=== PATIENT | male | born 1945 | race Caucasian/White ===

== ENCOUNTER 2017-06-21 08:38 | Outpatient (CLI) | payer MEDICARE ==
[2017-06-21 10:15] LABS: Bilirubin Small (Negative); Blood, Urine Negative (Negative); Clarity CLEAR (Clear); Glucose, Urine (Dipstick) Negative (Negative); Leukocyte Negative (Negative); Nitrite Negative (Negative); Protein, Urine (Dipstick) Negative (Neg-Trace); Specific Gravity, Urine 1.031 (1.002-1.036); Urobilinogen 0.2 mg/dL (0.2-1.0); pH, Urine 5.5 (5.0-9.0)
[2017-06-21 10:16] LABS: Bacteria/HPF None Seen HPF (None Seen); Hyaline Casts/LPF 0-3 HYALINE CAST LPF (0-3 Hyaline); Pathc Cast-AUWi Flag 0.27 (0-2.49); Squamous Epithelial None Seen HPF (0-3); WBC/HPF 0-3 HPF (0-3)
[2017-06-21 10:27] LABS: Anion Gap 11 mmol/L (10-20); BUN (Urea Nitrogen) 19 mg/dL (8.4-25.7); Calc. Creatinine Clearance 0 mL/min (70-130); Calcium 9.7 mg/dL (7.8-10.44); Carbon Dioxide 30 mmol/L (23-31); Chloride 102 mmol/L (98-107); Estimated GFR-MDRD Greater than 90; Glucose 110 mg/dL (83-110); Potassium 4.2 mmol/L (3.5-5.1); Sodium 139 mmol/L (136-145)
[2017-06-21 10:31] LABS: Hemoglobin 12.2 g/dL (14.0-18.0); Mean Corpuscular HGB CONC 33.3 g/dL (32.0-36.0); Mean Corpuscular Hemoglobin 22.9 pg (27.0-31.0); Mean Corpuscular Volume 68.7 fl (80.0-94.0); Mean Platelet Volume 10.4 fL (7.4-10.4); Platelet Count 167 thou/uL (130-400); RBC Distribution Width 14.8 % (11.5-14.5); Red Blood Cell (RBC) Count 5.32 mill/uL (4.70-6.10); White Blood Cell (WBC) Count 6.9 thou/uL (4.8-10.8)
--- NOTE | 2017-06-21 10:44 | RAD ---
CHEST TWO VIEWS: History: Pre-operative. Comparison: 03-16-17 FINDINGS: Lungs are clear of airspace consolidation, pneumothorax, or effusion. Cardiac silhouette and mediasti nal contours are similar. Multiple median sternotomy wires. IMPRESSION: No acute intrathoracic abnormality. No significant change. POS: OFF
[2017-06-21 11:00] LABS: Prothrombin Time 13.4 SEC (12.0-14.7)
[2017-06-21 11:01] LABS: PTT 32.5 SEC (22.9-36.1)
--- NOTE | 2017-06-30 19:27 | EKG ---
Test Reason : Blood Pressure : / mmHG Vent. Rate : 059 BPM Atrial Rate : 059 BPM P-R Int : 214 ms QRS Dur : 094 ms QT Int : 436 ms P-R-T Axes : 061 022 068 degrees QTc Int : 431 ms Sinus bradycardia with 1st degree A-V block Nonspecific T wave abnormality Abnormal ECG When compared with ECG of 08-JUL-2015 22:57, DE interval has increased Confirmed by KAMRON WILDE (2) on 06/30/2017 7:27:18 PM Referred By: TANJA Confirmed By:KAMRON WILDE
== END 2017-06-21 08:39 | disposition home or self-care (01) ==
LOC: LABBT 08:38
PROVIDERS: ATTEND Orthopaedic Surgery
DX: Z01.818 Encounter for other preprocedural examination (principal); M16.11 Unilateral primary osteoarthritis, right hip
CPT/HCPCS: 71046; 80048; 81001; 85027; 85610; 85730; 86850; 86900; 86901; 87081; 93005; 93010

== ENCOUNTER 2017-06-21 09:00 | Inpatient (IN) | payer MEDICARE ==
--- NOTE | 2017-06-23 18:38 | HP ---
HISTORY OF PRESENT ILLNESS: The patient is a 71-year-old male with a several month history of progre ssive bilateral hip pain, right greater than left. He has had no injury. He has had progressive eva n with ambulation despite rest, restriction of activities, use of pain medication. Pain is now inter fering with day to day activities including walking, getting dressed, and sleeping. PAST HISTORY: Please see the old chart. The patient has a previous heart bypass surgery and bilater al total knee replacements. He also has a history of hypertension and is on aspirin and Plavix. He has stopped Plavix in anticipation of surgery one week preoperatively, but has continued aspirin. He has been seen and cleared for surgery by Dr. Keyes. CURRENT MEDICATIONS: Include lisinopril, Prilosec, multivitamins, hydrocodone, aspirin 81 mg, Lexapr o, lorazepam, amlodipine, Lipitor, nitroglycerin, hydrochlorothiazide. ALLERGIES: He has no known allergies. FAMILY HISTORY: Otherwise unremarkable. SOCIAL HISTORY: Otherwise unremarkable. REVIEW OF SYSTEMS: Otherwise unremarkable. PHYSICAL EXAMINATION: GENERAL: Reveals healthy elderly male. HEENT: Unremarkable. NECK: Supple. CHEST: Clear. HEART: Regular rate and rhythm. ABDOMEN: Soft, nontender. RECTAL/GENITAL: Deferred. EXTREMITIES: Pertinent findings are related to his hips. Leg lengths are equal. There is no point tenderness in severe hip. There is decreased range of motion and pain with internal rotation o f both hips, right greater than left. His gait is slow and deliberate. Neurovascular exam is intact . Pulses are 2+. Straight leg raising is negative. X-rays of both hips reveal degenerative arthritis of both hips, right greater than left with minimal joint space remaining on the right, mild joint space remaining on the left. There has been progressi on from x-rays taken one year ago. IMPRESSION: 1. Primary degenerative arthritis, both hips, right greater than left. 2. History of hypertension. 3. History of atherosclerotic cardiovascular disease. PLAN: Right total hip replacement. The nature of the surgery, length of recovery, and potential com plications such as infection, loss of motion, incomplete relief, neurovascular injury, thromboembolic phenomenon, leg length discrepancy, possible transfusion, and need for revision have been discussed in detail.
[2017-06-27] MEDS ORDERED: CEFAZOLIN/Water 2 GM/20 ML SYRINGE ONE (06:31)
[2017-06-27] MEDS ORDERED: Tranexamic Acid 1,000 MG/100 ML BAG ONE ×2 (06:31→12:04)
[2017-06-27] MEDS ORDERED: Vancomycin HCl 1.5 GM in Sodium Chloride 0.9% 250 ML 300 ML IVPB ONE (07:00)
[2017-06-27] MEDS ORDERED: Midazolam HCl 2 mg/2 ml Vial ONE ×3 (07:35→08:48)
[2017-06-27] MEDS ORDERED: Fentanyl 100 MCG/2 ML VIAL ONE ×4 (07:35→13:50)
[2017-06-27] MEDS ORDERED: Fentanyl 250 MCG/5 ML VIAL ONE (09:43)
[2017-06-27] MEDS ORDERED: Tranexamic Acid 1,000 MG in Sodium Chloride 0.9% 100 ML IVPB SCH ×2 (11:45→14:43)
[2017-06-27] MEDS ORDERED: Ondansetron HCl/PF 4 MG/2 ML Vial IVP PRN ×3 (11:50→14:43)
[2017-06-27] MEDS ORDERED: Promethazine HCl 25 MG/ML VIAL IM PRN ×3 (11:50→13:09)
[2017-06-27] MEDS ORDERED: Promethazine HCl 25 MG/ML VIAL SLOW IVP PRN ×2 (11:50→14:43)
[2017-06-27] MEDS ORDERED: Promethazine HCl 25 MG/ML VIAL ONE (12:04)
--- NOTE | 2017-06-27 12:08 | OP ---
DATE OF PROCEDURE: 06/27/2017 SURGEON: Michael Marshall M.D. DIRECTOR STUDENT UNION: Luis Mcqueen PA-C. ANESTHESIA: General. PREOPERATIVE DIAGNOSIS: Degenerative arthritis, right hip. POSTOPERATIVE DIAGNOSIS: Degenerative arthritis, right hip. PROCEDURES PERFORMED: Right total hip replacement with uncemented Trident PSL acetabular shell with X3 polyethylene insert and uncemented Accolade femoral stem #3 with 36 mm standard neck length metal head. NARRATIVE REPORT: After satisfactory anesthesia was induced in supine position, sequential compressi on device was placed on the non-operative leg throughout the procedure. The patient was placed in th e lateral decubitus position. This position held with hip positioning device. The patient was then prepped and draped in the routine manner. The hip was approached through a lateral curvilinear incis ion centered over the greater trochanter and carried down through subcutaneous tissues. Bleeding poi nts controlled with Bovie cautery. IT band and gluteal fascia were split in line with the skin incis ion. The direct lateral approach to the hip joint was accomplished by dividing the anterior third of the gluteus medius and minimus tendons with Bovie cautery and reflecting this as a single flap anter iorly and medially along with the vastus lateralis. Anterior capsulectomy was performed and the hip dislocated anteriorly. There was marked degenerative arthritis of the hip with large areas of expose d bone. The femoral neck was osteotomized with an oscillating saw using a trial prosthesis as a guid e. The acetabulum was exposed and cleaned of all soft tissue and rim osteophytes. It was then reame d in sequence down to bleeding subchondral bone to a total of 56 mm. It was felt that a 56 mm Triden t PSL outer shell could be placed in a press fit fashion. The permanent component was then hammered into position. There was good fit and stability of the outer shell and the permanent X3 polyethylene liner was then snapped into position. The proximal femur was exposed and opened with a box osteotom e and then rasped in sequence to accept a #3 Accolade femoral rasp. Trial reduction with 132 degree neck angle trunnion and the standard neck length 36 mm head gave appropriate size, fit, stability, an d maintenance of leg length. Hip was again dislocated, the trial components removed. The permanent #3 Accolade femoral stem was then hammered in position. There was again good fit and stability. The permanent 36 mm standard neck length metal head was then placed on the trunnion and the hip again re duced and found to be stable. The wound was copiously irrigated with pulsatile lavage. The abductor s were repaired with interrupted #2 Vicryl. The IT band and gluteal fascia were closed with interrup stanley #2 Vicryl and a running #2 Quill. Subcutaneous tissues were closed with running 0 Quill suture a nd the skin closed with running subcuticular 3-0 Monoderm and SurgiSeal skin adhesive. Sterile dress ing was applied and the patient turned to the supine position, a pillow placed between his legs. Seq uential compression device was placed on the operated leg and he was awakened and taken to recovery r oom in stable condition. There were no apparent intraoperative complications. The estimated blood l oss was 400 mL
--- NOTE | 2017-06-27 12:33 | RAD ---
RIGHT HIP TWO VIEWS: History: Post op total hip. Comparison: CT from 03-16-17. FINDINGS: Satisfactory appearance related to hip arthroplasty. No complication. IMPRESSION: Satisfactory appearance right hip arthroplasty. POS: DENIS
[2017-06-27] MEDS ORDERED: Fentanyl 5000 MCG/250 ML CADD IVPB PRN (12:55)
[2017-06-27] MEDS ORDERED: diphenhydrAMINE 25 MG CAP PO PRN ×3 (12:55→14:43)
[2017-06-27] MEDS ORDERED: Naloxone HCl 0.4 mg/ml Vial IV PRN ×2 (12:55→13:09)
[2017-06-27] MEDS ORDERED: diphenhydrAMINE 50 MG/ML VIAL IM PRN ×2 (12:55→13:09)
[2017-06-27] MEDS ORDERED: Zolpidem Tartrate 5 MG TAB PO PRN ×2 (12:55→14:43)
[2017-06-27] MEDS ORDERED: diphenhydrAMINE 50 MG/ML VIAL IVP PRN ×2 (12:55→13:09)
[2017-06-27] MEDS ORDERED: Communication Order-Pharmacy FS SCH ×2 (13:00→13:15)
[2017-06-27] MEDS ORDERED: HYDROmorphone 10 mg/100 ml CADD IVPB PRN (13:09)
[2017-06-27] MEDS ORDERED: fentaNYL Citrate/PF 2,000 MCG in Sodium Chloride 0.9% 60 ML IV PRN (13:15)
[2017-06-27] MEDS ORDERED: traMADol HCl 50 MG TAB PO PRN (14:43)
[2017-06-27] MEDS ORDERED: Nitroglycerin 4.9 GM Bottle SL PRN (14:43)
[2017-06-27] MEDS ORDERED: Fentanyl 100 MCG/2 ML VIAL SLOW IVP PRN ×2 (14:43)
[2017-06-27] MEDS ORDERED: HYDROcodone/Acetaminophen 10/325 mg Tablet PO PRN ×2 (14:43)
[2017-06-27] MEDS ORDERED: Lorazepam 1 MG TAB PO PRN (15:44)
--- NOTE | 2017-06-27 16:59 | PDOC.PN ---
- Subjective Encounter Start Date: 06/27/17 Encounter Start Time: 16:57 Subjective: seen and examines. s/p R hip arthroplasty for OA and pain -: c/o difficulty urination. -: PCP -Crista.Sales Research Analyst-angelo - Objective MAR Reviewed: Yes Vital Signs & Weight: Vital Signs (12 hours) Temp Pulse Resp BP Pulse Ox 06/27/17 15:16 97.7 F 84 18 96 06/27/17 14:30 97.7 F 84 18 104/62 96 Weight Weight 241 lb Phys Exam - Physical Examination Constitutional: NAD HEENT: PERRLA, moist MMs, sclera anicteric, oral pharynx no lesions Neck: no nodes, no JVD, supple, full ROM Respiratory: no wheezing, no rales, no rhonchi, clear to auscultation bilateral Cardiovascular: RRR, no significant murmur Gastrointestinal: soft, non-tender, no distention, positive bowel sounds Musculoskeletal: no edema, pulses present Neurological: non-focal, normal sensation, moves all 4 limbs Psychiatric: normal affect, A&O x 3 Skin: no rash Dx/Plan (1) HTN (hypertension) Code(s): I10 - ESSENTIAL (PRIMARY) HYPERTENSION Status: Acute (2) CAD (coronary artery disease) Code(s): I25.10 - ATHSCL HEART DISEASE OF [place] CORONARY ARTERY W/O ANG PCTRS Status: Acute (3) S/P total hip arthroplasty Code(s): Z96.649 - PRESENCE OF UNSPECIFIED ARTIFICIAL HIP JOINT Status: Acute Qualifiers: Laterality: right Qualified Code(s): Z96.641 - Presence of right artificial hip joint (4) BPH (benign prostatic hypertrophy) Code(s): N40.0 - BENIGN PROSTATIC HYPERPLASIA WITHOUT LOWER URINRY TRACT SYMP Status: Acute - Plan continue antibiotics, PT/OT, respiratory therapy, out of bed/ambulate, DVT proph w/SCDs Bladder scan.if >300 ml,will try lasix .if no UO,then will Do garduno. -: pt somnolent from pain meds and anesthesia.monitor. -: am labs. H/H,BMP. -: home meds as below.reviewed. -: ASA BID for DVt prophylaxis.will follow. * . Review of Systems - Review of Systems Constitutional: negative: fever, chills, sweats, weakness, malaise, other Respiratory: negative: Cough, Dry, Shortness of Breath, Hemoptysis, SOB with Excertion, Pleuritic Pain, Sputum, Wheezing Cardiovascular: negative: chest pain, palpitations, orthopnea, paroxysmal nocturnal dyspnea, edema, light headedness, other Gastrointestinal: negative: Nausea, Vomiting, Abdominal Pain, Diarrhea, Constipation, Melena, Hematochezia, Other Genitourinary: Other. negative: Dysuria, Frequency, Incontinence, Hematuria, Retention Musculoskeletal: negative: Neck Pain, Shoulder Pain, Arm Pain, Back Pain, Hand Pain, Leg Pain, Foot Pain, Other Neurological: negative: Weakness, Numbness, Incoordination, Change in Speech, Confusion, Seizures, Other - Medications/Allergies Allergies/Adverse Reactions: Allergies Allergy/AdvReac Type Severity Reaction Status Date / Time tolmetin sodium Allergy Severe Anaphylaxis Verified 06/21/17 09:13 [From Tolectin] Iodinated Contrast- Oral and Allergy Mild Verified 06/21/17 09:13 IV Dye [Iodinated Contrast Media - IV Dye] adhesive Allergy Verified 06/21/17 09:13 Medications: Current Medications Acetaminophen (Tylenol) 650 mg PO Q4H PRN PRN Reason: SILVA/ T > 101F; Mild Pain (1-3) Hydrocodone Bitart/Acetaminophen ([place] 10/325) 1 tab PO Q4H PRN PRN Reason: Moderate Pain (4-6) Hydrocodone Bitart/Acetaminophen ([place] 10/325) 2 tab PO Q4H PRN PRN Reason: Severe Pain (7-10) Amlodipine Besylate (Norvasc) 5 mg PO QAM [facility] Aspirin (Aspirin) 325 mg PO BID [facility] Atorvastatin Calcium (Lipitor) 40 mg PO QAM [facility] Cefazolin Sodium (Ancef) 2 gm SLOW IVP 0200,1000,1800 [facility] Stop: 06/28/17 02:01 Diphenhydramine HCl (Benadryl) 25 mg IVP Q3H PRN PRN Reason: Itching Diphenhydramine HCl (Benadryl) 25 mg PO Q3H PRN PRN Reason: Itching Diphenhydramine HCl (Benadryl) 25 mg IM Q3H PRN PRN Reason: Itching Diphenhydramine HCl (Benadryl) 25 mg PO Q6H PRN PRN Reason: Itching Escitalopram Oxalate (Lexapro) 10 mg PO QAM [facility] Fentanyl (Sublimaze) 50 mcg SLOW IVP Q30MIN PRN PRN Reason: Moderate Pain (4-6) Fentanyl (Sublimaze) 100 mcg SLOW IVP Q1H PRN PRN Reason: Severe Pain (7-10) Ferrous Gluconate (Fergon) 324 mg PO BID [facility] Fentanyl Citrate 2,000 mcg/ (Sodium Chloride) 100 mls @ 0 mls/hr IV INF PRN; As Directed PRN Reason: Pain Sodium Chloride (Normal Saline 0.9%) 1,000 mls @ 100 mls/hr IV .Q10H [facility] Vancomycin HCl 1.5 gm/ Sodium (Chloride) 300 mls @ 200 mls/hr IVPB 1999 [facility] Stop: 06/27/17 23:59 Iron/Minerals/Multivitamins (Theragran M) 1 tab PO DAILY [facility] Ketorolac Tromethamine (Toradol) 15 mg IVP Q8HR [facility] Stop: 07/02/17 22:01 Lisinopril (Zestril) 20 mg PO QAM [facility] Lorazepam (Ativan) 2 mg PO TID PRN PRN Reason: Anxiety Miscellaneous Information (Communication Order-Pharmacy) 1 each FS ONE [facility] Stop: 06/28/17 13:01 Naloxone HCl (Narcan) 0.2 mg IV Q5MIN PRN PRN Reason: Opiate Reversal Nitroglycerin (Nitrolingual 0.4 Mg Andrew) 0 gm SL Q1H PRN PRN Reason: Chest Pain Ondansetron HCl (Zofran) 4 mg IVP Q6H PRN PRN Reason: Nausea/Vomiting Ondansetron HCl (Zofran) 4 mg IVP Q6H PRN PRN Reason: Nausea/Vomiting Pantoprazole Sodium (Protonix) 40 mg PO QAM [facility] Promethazine HCl (Phenergan) 12.5 mg IM Q4H PRN PRN Reason: Nausea/Vomiting Promethazine HCl (Phenergan) 12.5 mg SLOW IVP Q4H PRN PRN Reason: Nausea/Vomiting Senna/Docusate Sodium (Senokot S) 2 tab PO BID [facility] Sodium Chloride (Flush - Normal Saline) 10 ml IVF PRN PRN PRN Reason: Saline Flush Tramadol HCl (Ultram) 100 mg PO Q6H PRN PRN Reason: Mild Pain (1-3) Zolpidem Tartrate (Ambien) 5 mg PO HSPRN PRN PRN Reason: Insomnia Zolpidem Tartrate (Ambien) 5 mg PO HSPRN PRN PRN Reason: Insomnia
[2017-06-27] MEDS ORDERED: Propofol 200 MG/20 ML VIAL ONE (17:07)
[2017-06-27] MEDS ORDERED: Ketorolac Tromethamine 30 MG/ML VIAL ONE (17:07)
[2017-06-27] MEDS ORDERED: ePHEDrine/0.9% NaCl/PF SYRINGE 50 mg/10 ml ONE (17:07)
[2017-06-27] MEDS ORDERED: Glycopyrrolate 0.2 MG/ML 5 ML SYRINGE ONE (17:07)
[2017-06-27] MEDS ORDERED: Ondansetron HCl/PF 4 MG/2 ML Vial ONE (17:07)
[2017-06-27] MEDS ORDERED: Lidocaine 1% PF 5 ML VIAL ONE (17:07)
[2017-06-27] MEDS: CEFAZOLIN/Water 2 GM/20 ML SYRINGE SLOW IVP SCH (17:51)
[2017-06-27] MEDS: Sodium Chloride 0.9% 1,000 ML IV SCH (17:51)
[2017-06-27] MEDS ORDERED: Vancomycin HCl 1.5 GM in Sodium Chloride 0.9% 250 ML 300 ML IVPB SCH (20:00)
[2017-06-27] MEDS: Ketorolac Tromethamine 30 MG/ML VIAL IVP SCH (21:39)
[2017-06-27] MEDS: Aspirin 325 MG TAB PO SCH (21:39)
[2017-06-28] MEDS: CEFAZOLIN/Water 2 GM/20 ML SYRINGE SLOW IVP SCH (02:37)
[2017-06-28] MEDS: Sodium Chloride 0.9% 1,000 ML IV SCH ×3 (02:56→20:56)
[2017-06-28 06:54] LABS: Hemoglobin 8.8 g/dL (14.0-18.0); Mean Corpuscular HGB CONC 32.3 g/dL (32.0-36.0); Mean Corpuscular Hemoglobin 22.2 pg (27.0-31.0); Platelet Count 167 thou/uL (130-400); RBC Distribution Width 14.8 % (11.5-14.5); Red Blood Cell (RBC) Count 3.94 mill/uL (4.70-6.10); White Blood Cell (WBC) Count 12.4 thou/uL (4.8-10.8)
[2017-06-28] MEDS: Ketorolac Tromethamine 30 MG/ML VIAL IVP SCH ×3 (06:55→21:21)
[2017-06-28 07:19] LABS: Anion Gap 11 mmol/L (10-20); BUN (Urea Nitrogen) 20 mg/dL (8.4-25.7); Calc. Creatinine Clearance 124 mL/min (70-130); Carbon Dioxide 28 mmol/L (23-31); Chloride 98 mmol/L (98-107); Estimated GFR-MDRD Greater than 90; Glucose 131 mg/dL (83-110); Potassium 4.5 mmol/L (3.5-5.1); Sodium 132 mmol/L (136-145)
[2017-06-28] MEDS: Multivitamin W/ Minerals 1 TAB PO SCH (07:54)
[2017-06-28] MEDS: Atorvastatin Calcium 40 MG TAB PO SCH (07:54)
[2017-06-28] MEDS: Ferrous Gluconate 324 MG TAB PO SCH ×2 (07:54→20:57)
[2017-06-28] MEDS: Aspirin 325 MG TAB PO SCH ×2 (07:55→20:57)
[2017-06-28] MEDS: Lisinopril 20 MG TAB PO SCH (07:55)
[2017-06-28] MEDS: Amlodipine 5 MG TAB PO SCH (07:55)
[2017-06-28] MEDS: Escitalopram Oxalate 10 mg Tablet PO SCH (07:55)
[2017-06-28] MEDS: Senokot S 8.6-50 MG TAB PO SCH ×2 (07:55→20:57)
[2017-06-28] MEDS ORDERED: Citalopram 20 MG TAB PO SCH (09:00)
[2017-06-28] MEDS: Ondansetron HCl/PF 4 MG/2 ML Vial IVP PRN (09:46)
[2017-06-28] MEDS ORDERED: HYDROmorphone 10 mg/100 ml CADD IV PRN (12:25)
--- NOTE | 2017-06-28 20:54 | PDOC.PN ---
- Subjective Encounter Start Date: 06/28/17 Encounter Start Time: 20:20 Subjective: f/u s/p R BRUCE POD #1. Feeling ok and ambulated with assistance. voiding in -: urinal. - Objective MAR Reviewed: Yes Vital Signs & Weight: Vital Signs (12 hours) Temp Pulse Pulse Resp BP BP Pulse Ox 06/28/17 20:00 98.2 F 105 H 17 121/73 99 06/28/17 15:35 98.6 F 90 16 109/66 96 06/28/17 11:45 97.8 F 83 16 119/67 95 06/28/17 10:06 84 151/80 H Pulse Ox 06/28/17 20:00 06/28/17 15:35 06/28/17 11:45 06/28/17 10:06 96 Weight Admit Weight 241 lb Weight 241 lb I&O: 06/27/17 06/28/17 06/29/17 06:59 06:59 06:59 Output Total 350 Balance -350 Result Diagrams: 06/28/17 06:21 06/28/17 06:21 Phys Exam - Physical Examination Constitutional: NAD HEENT: PERRLA, oral pharynx no lesions Neck: no JVD, supple Respiratory: no wheezing, clear to auscultation bilateral Cardiovascular: RRR Gastrointestinal: soft, non-tender, no distention, positive bowel sounds R hip with surgical dressing in place Musculoskeletal: pulses present, edema present Neurological: moves all 4 limbs Psychiatric: A&O x 3 Skin: normal turgor, cap refill <2 seconds Dx/Plan (1) CAD (coronary artery disease) Code(s): I25.10 - ATHSCL HEART DISEASE OF [place] CORONARY ARTERY W/O ANG PCTRS Status: Chronic Comment: Stable, continue med mgmt (2) HTN (hypertension) Code(s): I10 - ESSENTIAL (PRIMARY) HYPERTENSION Status: Chronic Qualifiers: Hypertension type: essential hypertension Qualified Code(s): I10 - Essential (primary) hypertension Comment: Stable, continue Lisinopril 20mg daily and Amlodipine 5mg daily (3) S/P total hip arthroplasty Code(s): Z96.649 - PRESENCE OF UNSPECIFIED ARTIFICIAL HIP JOINT Status: Acute Qualifiers: Laterality: right Qualified Code(s): Z96.641 - Presence of right artificial hip joint Comment: POD #1, pain control, PT/OT, ASA 325mg BID, Joint U protocol (4) BPH (benign prostatic hypertrophy) Code(s): N40.0 - BENIGN PROSTATIC HYPERPLASIA WITHOUT LOWER URINRY TRACT SYMP Status: Chronic Comment: Consider Flomax - Plan PT/OT, director of social work, incentive spirometry, out of bed/ambulate, DVT proph w/ SCDs Stable overall -: Continue Joint U protocol -: ASA 325mg BID -: Pain control as clinically indicated -: Continue Norvasc and Lisinopril * AM lab: CBC
[2017-06-29] MEDS: Ketorolac Tromethamine 30 MG/ML VIAL IVP SCH ×3 (05:09→21:56)
[2017-06-29 06:04] LABS: Hemoglobin 7.4 g/dL (14.0-18.0); Mean Corpuscular HGB CONC 32.5 g/dL (32.0-36.0); Mean Corpuscular Hemoglobin 22.3 pg (27.0-31.0); Mean Corpuscular Volume 68.4 fl (80.0-94.0); Mean Platelet Volume 9.5 fL (7.4-10.4); Platelet Count 139 thou/uL (130-400); RBC Distribution Width 14.7 % (11.5-14.5); Red Blood Cell (RBC) Count 3.33 mill/uL (4.70-6.10); White Blood Cell (WBC) Count 10.5 thou/uL (4.8-10.8)
[2017-06-29] MEDS: Sodium Chloride 0.9% 1,000 ML IV SCH ×2 (06:27→21:04)
[2017-06-29] MEDS ORDERED: Furosemide 20 MG/2 ML VIAL SLOW IVP SCH (07:30)
[2017-06-29] MEDS: Lisinopril 20 MG TAB PO SCH (09:44)
[2017-06-29] MEDS: Ferrous Gluconate 324 MG TAB PO SCH ×3 (09:45→21:56)
[2017-06-29] MEDS: Amlodipine 5 MG TAB PO SCH (09:45)
[2017-06-29] MEDS: Senokot S 8.6-50 MG TAB PO SCH ×2 (09:46→21:55)
[2017-06-29] MEDS: Atorvastatin Calcium 40 MG TAB PO SCH (09:46)
[2017-06-29] MEDS: Multivitamin W/ Minerals 1 TAB PO SCH (09:46)
[2017-06-29] MEDS: Escitalopram Oxalate 10 mg Tablet PO SCH (09:46)
[2017-06-29] MEDS: Aspirin 325 MG TAB PO SCH ×2 (09:52→21:55)
[2017-06-29] MEDS: Ondansetron HCl/PF 4 MG/2 ML Vial IVP PRN (09:52)
[2017-06-29] MEDS: Acetaminophen 325 MG TAB PO PRN ×2 (13:20→23:58)
[2017-06-29] MEDS: Lorazepam 1 MG TAB PO SCH ×2 (14:31→21:56)
[2017-06-29] MEDS ORDERED: diphenhydrAMINE 50 MG/ML VIAL IVP SCH (15:30)
[2017-06-29 15:34] LABS: Bilirubin Negative (Negative); Blood, Urine Negative (Negative); Clarity CLEAR (Clear); Glucose, Urine (Dipstick) Negative (Negative); Leukocyte Negative (Negative); Nitrite Negative (Negative); Protein, Urine (Dipstick) Negative (Neg-Trace); Urobilinogen 0.2 mg/dL (0.2-1.0); pH, Urine 5.5 (5.0-9.0)
--- NOTE | 2017-06-29 17:20 | PDOC.PN ---
- Subjective Encounter Start Date: 06/29/17 Encounter Start Time: 17:00 Subjective: f/u for R BRUCE POD#2. Nsg reports fever and some cough. Appetite ok but -: sluggish to return. Last BM 3 days ago. - Objective MAR Reviewed: Yes Vital Signs & Weight: Vital Signs (12 hours) Temp Pulse Pulse Pulse Resp BP BP 06/29/17 15:45 98.6 F 78 20 108/64 06/29/17 14:39 99.3 F 06/29/17 13:15 101.7 F H 06/29/17 11:36 100.5 F H 97 18 145/72 H 06/29/17 11:17 100.7 F H 94 18 143/69 H 06/29/17 10:15 98.2 F 104 H 16 06/29/17 09:45 107 H 122/67 06/29/17 09:44 122/67 BP Pulse Ox 06/29/17 15:45 94 L 06/29/17 14:39 06/29/17 13:15 06/29/17 11:36 96 06/29/17 11:17 06/29/17 10:15 122/67 95 06/29/17 09:45 06/29/17 09:44 Weight Admit Weight 241 lb Weight 241 lb I&O: 06/28/17 06/29/17 06/30/17 06:59 06:59 06:59 Intake Total 830 300 Output Total 350 1350 Balance -350 -520 300 Result Diagrams: 06/29/17 05:26 06/28/17 06:21 Additional Labs: Laboratory Tests 06/28/17 06:21 Hgb 8.8 L Phys Exam - Physical Examination Constitutional: NAD HEENT: PERRLA, oral pharynx no lesions Neck: no JVD, supple Respiratory: no wheezing Cardiovascular: RRR Gastrointestinal: soft, non-tender, no distention, positive bowel sounds R hip with edema Musculoskeletal: pulses present Neurological: normal sensation, moves all 4 limbs Psychiatric: A&O x 3 Skin: normal turgor, cap refill <2 seconds Dx/Plan (1) Febrile illness, acute Code(s): R50.9 - FEVER, UNSPECIFIED Status: Acute Comment: Etiology unclear , likely atelectasis post op, incentive spirometry, sit upright, r/o underlying infectious process, check blood/Ucx (2) CAD (coronary artery disease) Code(s): I25.10 - ATHSCL HEART DISEASE OF [place] CORONARY ARTERY W/O ANG PCTRS Status: Chronic Comment: Stable, continue med mgmt (3) HTN (hypertension) Code(s): I10 - ESSENTIAL (PRIMARY) HYPERTENSION Status: Chronic Qualifiers: Hypertension type: essential hypertension Qualified Code(s): I10 - Essential (primary) hypertension Comment: Stable, continue Lisinopril 20mg daily and Amlodipine 5mg daily (4) S/P total hip arthroplasty Code(s): Z96.649 - PRESENCE OF UNSPECIFIED ARTIFICIAL HIP JOINT Status: Acute Qualifiers: Laterality: right Qualified Code(s): Z96.641 - Presence of right artificial hip joint Comment: POD #2, pain control, PT/OT, ASA 325mg BID, Joint U protocol (5) BPH (benign prostatic hypertrophy) Code(s): N40.0 - BENIGN PROSTATIC HYPERPLASIA WITHOUT LOWER URINRY TRACT SYMP Status: Chronic Comment: Consider Flomax (6) Anemia due to blood loss, acute Code(s): D62 - ACUTE POSTHEMORRHAGIC ANEMIA Status: Acute Comment: 2u PRBC' s and repeat CBC in am - Plan plan discussed w/ family, PT/OT, out of bed/ambulate, DVT proph w/SCDs Stable overall -: Continue routine post op care -: Await blood/urine cx results -: Incentive spirometry -: Transfuse 2u PRBC's today * AM lab: CBC
[2017-06-29 19:55] VITALS: BMI 37.5
[2017-06-30] MEDS: Sodium Chloride 0.9% 1,000 ML IV SCH ×2 (03:23→22:07)
[2017-06-30] MEDS: Ketorolac Tromethamine 30 MG/ML VIAL IVP SCH (05:28)
[2017-06-30 05:48] LABS: Hemoglobin 8.4 g/dL (14.0-18.0); Mean Corpuscular HGB CONC 32.8 g/dL (32.0-36.0); Mean Corpuscular Hemoglobin 23.8 pg (27.0-31.0); Mean Corpuscular Volume 72.5 fl (80.0-94.0); Mean Platelet Volume 9.1 fL (7.4-10.4); Platelet Count 126 thou/uL (130-400); RBC Distribution Width 17.5 % (11.5-14.5); Red Blood Cell (RBC) Count 3.54 mill/uL (4.70-6.10); White Blood Cell (WBC) Count 8.7 thou/uL (4.8-10.8)
[2017-06-30] MEDS ORDERED: Bisacodyl 10 MG SUPP PR PRN (07:51)
[2017-06-30] MEDS ORDERED: Bisacodyl 10 MG SUPP PR SCH (08:00)
[2017-06-30] MEDS: Lisinopril 20 MG TAB PO SCH (08:46)
[2017-06-30] MEDS: Atorvastatin Calcium 40 MG TAB PO SCH (08:47)
[2017-06-30] MEDS: Multivitamin W/ Minerals 1 TAB PO SCH (08:47)
[2017-06-30] MEDS: Lorazepam 1 MG TAB PO SCH (08:47)
[2017-06-30] MEDS: Aspirin 325 MG TAB PO SCH (08:48)
[2017-06-30] MEDS: Amlodipine 5 MG TAB PO SCH (08:48)
[2017-06-30] MEDS: Senokot S 8.6-50 MG TAB PO SCH (08:48)
[2017-06-30] MEDS: Ferrous Gluconate 324 MG TAB PO SCH (08:48)
[2017-06-30] MEDS: Escitalopram Oxalate 10 mg Tablet PO SCH (08:48)
[2017-06-30] MEDS ORDERED: HYDROcodone/Acetaminophen 10/325 mg Tablet PO PRN ×2 (09:06)
[2017-06-30 11:54] VITALS: BP 146/76; TEMP 98.7
--- NOTE | 2017-06-30 13:32 | DIS ---
DATE OF ADMISSION: 06/27/2017 DATE OF DISCHARGE: 06/30/2017 DISCHARGE DIAGNOSES: 1. Status post right total hip arthroplasty. 2. Acute blood loss anemia secondary to surgical intervention, status post 2 units of packed red blo od cells, stable. 3. Acute febrile illness, resolved. 4. Coronary artery disease, chronic and stable. 5. Hypertension, stable. PRIMARY SERVICE ATTENDING: Dr. Michael Marshall with Orthopedic Surgery Service. [facility] for medical management. PERTINENT LABORATORY AND X-RAY FINDINGS: Basic metabolic profile within normal limits. CBC showed a white blood cell count ranging between 8.7-12.4, hemoglobin ranged between 7.4-8.8, platelet count r anging between 126-167. Blood cultures x2 dated 06/29/2017 showed no growth to date. Urine culture dated 06/29/2017 showed no growth at 24 hours. HOSPITAL COURSE: Patient was initially admitted under the Orthopedic Surgery Service after undergoin g elective right total hip arthroplasty, 06/27/2017. The patient was managed under the [facility] it protocol with serial H and H monitoring showing a decreased hemoglobin to 7.4 postoperatively fro m previous value of 12.2, 06/21/2017. The patient received 2 units of packed red blood cells and was noted with associated fever. The patient underwent general evaluation including blood and urine cul ture evaluation showing no evidence of an occult infectious process. The patient's fever resolved wi th symptomatic and supportive measures, and overall, patient remained clinically stable postoperative ly. The patient was meeting all [facility] protocol guidelines and ready for discharge on 06/20. DISCHARGE MEDICATIONS: 1. Norvasc 5 mg 1 tab p.o. daily. 2. Aspirin 325 mg 1 tab p.o. daily. 3. Lipitor 40 mg p.o. q.a.m. 4. Citalopram 40 mg p.o. q.a.m. 5. Plavix 75 mg 1 tab p.o. daily. 6. Vitamin B12 50 mcg p.o. daily. 7. Lexapro 10 mg p.o. q.a.m. 8. [place] 10/325 mg 1-2 tabs p.o. q.6 hours p.r.n. pain. 9. Lisinopril 20 mg 1 tab p.o. q.a.m. 10. Ativan 2 mg p.o. t.i.d. 11. Multivitamin 1 tab p.o. daily. 12. Nitroglycerin p.r.n. 13. Protonix 40 mg p.o. q.a.m. FOLLOWUP: The patient may follow up with Dr. Basil Tobin and to call his office for appointment time and date. The patient may also follow up with Dr. Michael Marshall on 07/12/2017 at 10:00 a.m. CONDITION ON DISCHARGE: Stable. ACTIVITY: Per Orthopedic Surgery recommendations. DIET: Heart healthy. CODE STATUS: FULL. DISPOSITION: Home with home health services, 06/30/2017.
== END 2017-06-30 13:11 | disposition home health service (06) | DRG 470 ==
LOC: SJJU 06-27 06:16 → SURG B 06-27 13:58
PROVIDERS: ADMIT Orthopaedic Surgery; ATTEND Orthopaedic Surgery
PROC: 0SR904A Replacement of Right Hip Joint with Ceramic on Polyethylene Synthetic Substitute, Uncemented, Open Approach (ICD-10-PCS; principal; 2017-06-27)
PROC: 30233N1 Transfusion of Nonautologous Red Blood Cells into Peripheral Vein, Percutaneous Approach (ICD-10-PCS; 2017-06-29)
DX: M16.11 Unilateral primary osteoarthritis, right hip (principal); D62 Acute posthemorrhagic anemia; I10 Essential (primary) hypertension; Z79.82 Long term (current) use of aspirin; Z79.02 Long term (current) use of antithrombotics/antiplatelets; Z95.1 Presence of aortocoronary bypass graft; Z96.653 Presence of artificial knee joint, bilateral; I25.10 Atherosclerotic heart disease of native coronary artery without angina pectoris; N40.0 Benign prostatic hyperplasia without lower urinary tract symptoms; K21.9 Gastro-esophageal reflux disease without esophagitis; Z87.891 Personal history of nicotine dependence; E78.5 Hyperlipidemia, unspecified
CPT/HCPCS: 36415; 36430; 80048; 81003; 85027; 86850; 86900; 86901; 87040; 87086; C1776; G8978-GP-CL; G8979-GP-CK; G8987-GO-CK; G8988-GO-CI; J1200; J1885; J1940; J2001; J2250; J2405; J2550; J2704; J3010; J3370; J7050; P9016

== ENCOUNTER 2018-08-09 11:14 | Outpatient (CLI) | payer MEDICARE ==
--- NOTE | 2018-08-09 14:11 | MRI ---
MRI LUMBAR SPINE WITHOUT CONTRAST: Date: 08/09/18 COMPARISON: None. HISTORY: Back pain, lumbar spondylosis. TECHNIQUE: Multiplanar, multisequence MR imaging of the lumbar spine obtained without contrast. FINDINGS: Mild increased STIR signal is seen within the bilateral L5 pedicles, left greater than right, suggest ing mild edematous change. There is fluid seen within bilateral facet joints at L4-5 and L5-S1. On the basis of five lumbar-type vertebral bodies, conus medullaris terminates at L1. No significant anterolisthesis or retrolisthesis is seen. T12-L1: Mild bilateral facet hypertrophy. Mild anterior osteophyte formation. No significant central canal or neural foraminal stenosis. L1-2: Minimal disc bulge. Mild anterior osteophyte formation. Mild bilateral facet hypertrophy, left greater than right. No significant central canal or neural foraminal stenosis. L2-3: Disc desiccation and mild disc bulge with mild central canal stenosis. Moderate bilateral face t hypertrophy with moderate bilateral neural foraminal stenosis. L3-4: Moderate bilateral facet hypertrophy. Disc desiccation and mild/moderate central canal stenosi s. Moderate bilateral neural foraminal stenosis, left greater than right. Benign hemangioma noted wit hin L3 vertebral body. L4-5: There is disc desiccation and mild disc bulge. There is prominent bilateral facet hypertrophy with a mild to moderate degree of central canal stenosis. There is mild/moderate bilateral neural for aminal stenosis as well. L5-S1: Moderate bilateral facet hypertrophy. Moderate left neural foraminal stenosis. Mild central c anal stenosis. Imaged retroperitoneal structures demonstrate bilateral renal cysts. IMPRESSION: Multilevel lower lumbar spine degenerative disc disease as detailed above. Fluid is seen within facet joints of the lower lumbar spine, which may be seen on the basis of instability. Flexion and extensi on lumbar radiographs may thus be beneficial. POS: DENIS
== END 2018-08-09 11:15 | disposition home or self-care (01) ==
LOC: MRI 11:14
PROVIDERS: ATTEND Orthopaedic Surgery
DX: M47.816 Spondylosis without myelopathy or radiculopathy, lumbar region (principal); M51.36 Other intervertebral disc degeneration, lumbar region
CPT/HCPCS: 72148

== ENCOUNTER 2019-01-09 10:59 | Outpatient (CLI) | payer MEDICARE ==
[2019-01-09 12:24] LABS: Hemoglobin 11.4 g/dL (14.0-18.0); Mean Corpuscular HGB CONC 31.8 g/dL (32.0-36.0); Mean Corpuscular Hemoglobin 21.5 pg (27.0-31.0); Mean Corpuscular Volume 67.5 fL (78.0-98.0); Mean Platelet Volume 9.6 fL (7.4-10.4); Platelet Count 169 thou/uL (130-400); RBC Distribution Width 14.2 % (11.5-14.5); Red Blood Cell (RBC) Count 5.29 mill/uL (4.70-6.10); White Blood Cell (WBC) Count 7.3 thou/uL (4.8-10.8)
[2019-01-09 12:39] LABS: Anion Gap 12 mmol/L (10-20); BUN (Urea Nitrogen) 18 mg/dL (8.4-25.7); Calc. Creatinine Clearance 0 mL/min (70-130); Carbon Dioxide 26 mmol/L (23-31); Chloride 101 mmol/L (98-107); Estimated GFR-MDRD Greater than 90; Glucose 104 mg/dL (83-110); Potassium 4.3 mmol/L (3.5-5.1); Sodium 135 mmol/L (136-145)
--- NOTE | 2019-01-11 17:55 | EKG ---
Test Reason : Blood Pressure : / mmHG Vent. Rate : 056 BPM Atrial Rate : 056 BPM P-R Int : 246 ms QRS Dur : 092 ms QT Int : 450 ms P-R-T Axes : 051 013 022 degrees QTc Int : 434 ms Sinus bradycardia with 1st degree A-V block with Premature atrial complexes Minimal voltage criteria for LVH, may be normal variant Nonspecific T wave abnormality Abnormal ECG When compared with ECG of 21-JUN-2017 09:48, Premature atrial complexes are now Present Confirmed by DR. Blanca JAY ([id number]) on 01/11/2019 5:55:26 PM Referred By: MELLISA Confirmed By:DR. Blanca JAY
== END 2019-01-09 11:00 | disposition home or self-care (01) ==
LOC: LABBT 10:59
PROVIDERS: ATTEND Neurological Surgery
DX: Z01.818 Encounter for other preprocedural examination (principal); M48.061 Spinal stenosis, lumbar region without neurogenic claudication; M54.16 Radiculopathy, lumbar region
CPT/HCPCS: 80048; 85027; 93005; 93010

== ENCOUNTER 2019-01-13 07:36 | Emergency (ER) | payer MEDICARE ==
[2019-01-13] MEDS ORDERED: Morphine 4 MG/ML VIAL ONE (08:05)
[2019-01-13] MEDS ORDERED: Ondansetron ODT 8 MG TAB ONE (08:06)
[2019-01-13] MEDS ORDERED: Ketorolac Tromethamine 30 MG/ML VIAL ONE (08:06)
--- NOTE | 2019-01-13 08:51 | CT ---
EXAM: CT Thoracic Spine WO Con DATE: 01/13/2019 8:00 AM INDICATION: Back pain COMPARISON: MR thoracic spine dated March 14, 2011 FINDING: There is worsening multilevel disc degenerative disease. There are DISH like changes involv ing the mid to lower thoracic spine. There is diffuse osteopenia. No acute fracture or subluxation is evident. Spinal alignment is preserved. Osseous central canal appears preserved. Visualized lungs demonstrate calcified granuloma within the right lower lobe. There are scattered vas cular calcifications. Visualized upper abdomen is unremarkable. IMPRESSION:Worsening moderate to severe multilevel thoracic spondylosis without evidence of acute fra cture or subluxation.
--- NOTE | 2019-01-13 09:39 | CT ---
CT CERVICAL SPINE WITH CORONAL AND SAGITTAL REFORMATIONS: Date: 01/13/19 HISTORY: Neck pain radiating to the head, bilateral upper extremities, and back. FINDINGS: Multilevel degenerative changes are present. These are manifested by disc osteophyte complexes, uncov ertebral hypertrophic changes, and facet hypertrophic changes at multiple levels in the cervical spin e. No fracture, subluxation, or facet malalignment is seen. There is severe right-sided neural forami nal stenosis at C2-3, C3-4, and C4-5 level, and moderate right-sided neural foraminal stenosis at C5- 6 level. There is mild to moderate left-sided neural foraminal stenosis at C3-4 and severe neural for aminal stenosis at C4-5 level. The neural foraminal stenosis at C4-5 level is worse on the right comp ared to the left. There is central canal stenosis with probable impingement of the anterior spinal cord at C4-5 level a nd C5-6 level. IMPRESSION: Cervical spondylosis with multilevel stenosis as discussed above. POS: DENIS
== END 2019-01-13 10:20 | disposition home or self-care (01) ==
LOC: ERS 07:36
DX: M48.02 Spinal stenosis, cervical region (principal); M19.90 Unspecified osteoarthritis, unspecified site; I25.10 Atherosclerotic heart disease of native coronary artery without angina pectoris; I10 Essential (primary) hypertension; F41.9 Anxiety disorder, unspecified; F32.9 Major depressive disorder, single episode, unspecified; Z87.891 Personal history of nicotine dependence; Z79.01 Long term (current) use of anticoagulants; Z79.891 Long term (current) use of opiate analgesic; Z79.899 Other long term (current) drug therapy; Z79.82 Long term (current) use of aspirin
CPT/HCPCS: 72125; 72128; 96372; J1885; J2270

== ENCOUNTER 2019-01-22 05:40 | Day surgery (SDC) | payer MEDICARE ==
[2019-01-09 11:24] VITALS: BMI 36.0
--- NOTE | 2019-01-21 23:08 | HP ---
HISTORY OF PRESENT ILLNESS: Mr. Freire is a very pleasant 73-year-old gentleman here today for evaluation of mini-muscle progressive lower back pain with associated neurogenic claudication symptoms. He has been receiving injections from Dr. Fuentes, which provide excellent relief. However, this is rather short-lived. He has an MRI from [place] that reveals severe central canal stenosis at L4-5 which does explain his symptoms quite well. PAST MEDICAL HISTORY: Significant for chronic pain syndrome, hypercholesterolemia, coronary artery disease, hypertension, gastric reflux, anxiety, and osteoarthritis. PAST SURGICAL HISTORY: Quadruple bypass and hip replacement, unspecified laterality. ALLERGIES: TOLECTIN AND IODINE. CURRENT MEDICATIONS: 1. Lisinopril. 2. Amlodipine. 3. [place]. 4. Lorazepam. 5. Citalopram. 6. Clopidogrel. 7. Gabapentin. 8. Methylprednisolone. PHYSICAL EXAMINATION: GENERAL: Patient is alert and oriented x3. Gait is mildly antalgic. EXTREMITIES: Lower extremity motor exam reveals 5/5 strength in bilateral lower extremities. ASSESSMENT: Lumbar stenosis with neurogenic claudication. PLAN: Dr. Matthews met with the patient, reviewed imaging, and advocated for an L4-L5 decompression. He explained to the patient the risks, benefits, and alternatives to the procedure. The patient expressed understanding and elected to move forward with surgery as planned. I do believe the patient is mentally competent and capable of making medical decisions for himself. We will move forward with surgery as discussed. Job ID: [id number]
[2019-01-22] MEDS ORDERED: ceFAZolin Sodium (SDC) 2 GM/100 ML BAG ONE ×2 (06:11→10:41)
[2019-01-22] MEDS ORDERED: Fentanyl 250 MCG/5 ML VIAL ONE (06:34)
[2019-01-22] MEDS ORDERED: Midazolam HCl 2 mg/2 ml Vial ONE (06:34)
[2019-01-22] MEDS ORDERED: Bupivacaine HCl 0.5%/Epinephrine 1:200,000/PF 30 ml Vial ONE (06:35)
[2019-01-22] MEDS ORDERED: Thrombin 5000 UNITS/5 ML VIAL ONE (06:35)
--- NOTE | 2019-01-22 08:26 | OP ---
DATE OF PROCEDURE: 01/22/2019 [employer]OCKROOM KEEPER: Orlando Petersen PA-C. INDICATIONS: Pain and prevent neurologic decline. DIAGNOSIS: Neurogenic claudication. PROCEDURES PERFORMED: L4-L5 lumbar decompression. ANESTHESIA: General. DESCRIPTION OF PROCEDURE: The patient was brought into the operating room and placed under general anesthesia. He was flipped from supine to prone position on the operating room table. A linear incision was planned over the L4-L5 segment. After prepping and draping and after an appropriate preoperative pause, the incision was created. The soft tissues were swept away from midline. Self-retaining retractors were placed. After confirming the appropriate level with C-arm fluoroscopy, an Adson rongeur as well as a high-speed cutting drill bit as well as 2, 3, and 4 mm Kerrisons were used to perform a laminectomy, which extended from the inferior aspect of L4 and the superior aspect of L5. Laminectomy was extended laterally to encompass the medial third of the facet joints in order to adequately decompress the lateral recesses. After the decompression, the wound was irrigated. Hemostasis was maintained throughout. The wound was then closed in anatomic layers and a pressure dressing was applied. There were no known procedural complications. Job ID: [id number]
[2019-01-22] MEDS ORDERED: Ketorolac Tromethamine 30 MG/ML VIAL ONE (08:34)
[2019-01-22] MEDS ORDERED: Fentanyl 100 MCG/2 ML VIAL ONE ×3 (08:34→09:27)
[2019-01-22] MEDS ORDERED: Tamsulosin HCl 0.4 MG CAP ONE (08:44)
[2019-01-22] MEDS ORDERED: Acetaminophen/Codeine 30-300mg Tablet ONE (11:20)
[2019-01-22] MEDS ORDERED: Lidocaine 1% PF 5 ML VIAL ONE (12:33)
[2019-01-22] MEDS ORDERED: Ondansetron PF 4 MG/2 ML Vial ONE (12:33)
[2019-01-22] MEDS ORDERED: Dexamethasone 20 MG/5 ML VIAL ONE (12:33)
[2019-01-22] MEDS ORDERED: PROPOFOL 200 MG/20 ML VIAL ONE (12:33)
[2019-01-22] MEDS ORDERED: Rocuronium Bromide 10 MG/ML (10ML VIAL) ONE (12:33)
[2019-01-22] MEDS ORDERED: ePHEDrine 50 MG/ML VIAL ONE (12:33)
[2019-01-22] MEDS ORDERED: Glycopyrrolate 0.2 MG/ML 5 ML SYRINGE ONE (12:33)
[2019-01-22] MEDS ORDERED: PHENYLEPHRINE-NS 100 MCG/ML 10 ML SYRINGE ONE (12:33)
== END 2019-01-22 12:02 | disposition home or self-care (01) ==
LOC: SDC 05:40
PROVIDERS: ATTEND Neurological Surgery
PROC: 01NB0ZZ Release Lumbar Nerve, Open Approach (ICD-10-PCS; principal; 2019-01-22)
DX: M48.062 Spinal stenosis, lumbar region with neurogenic claudication (principal); M54.16 Radiculopathy, lumbar region; G89.4 Chronic pain syndrome; E78.00 Pure hypercholesterolemia, unspecified; I35.0 Nonrheumatic aortic (valve) stenosis; I25.10 Atherosclerotic heart disease of native coronary artery without angina pectoris; I10 Essential (primary) hypertension; K21.9 Gastro-esophageal reflux disease without esophagitis; F41.9 Anxiety disorder, unspecified; M19.90 Unspecified osteoarthritis, unspecified site; E66.01 Morbid (severe) obesity due to excess calories; Z68.36 Body mass index [BMI] 36.0-36.9, adult; Z88.6 Allergy status to analgesic agent; Z91.041 Radiographic dye allergy status; Z91.048 Other nonmedicinal substance allergy status; Z79.82 Long term (current) use of aspirin; Z79.02 Long term (current) use of antithrombotics/antiplatelets
CPT/HCPCS: 76000; J0670; J0690; J1885; J2250; J3010

== ENCOUNTER 2022-05-12 10:18 | Outpatient (CLI) | payer MEDICARE | END 2022-05-12 10:19 | disposition home or self-care (01) | LOC: BICMAMMO 10:18 | PROVIDERS: ATTEND Internal Medicine | DX: N63.10 Unspecified lump in the right breast, unspecified quadrant (principal) | CPT/HCPCS: 76642; 77066; G0279 ==

== ENCOUNTER 2023-04-18 16:25 | Emergency (ER) | payer MEDICARE ==
[2023-04-18] MEDS ORDERED: Lidocaine 2% Viscous Solution 10 ML, Aluminum & Magnesium Hydroxide 30 ML SSW SCH (18:00)
== END 2023-04-18 18:12 | disposition home or self-care (01) ==
LOC: ERS 16:25
DX: R13.10 Dysphagia, unspecified (principal); I25.10 Atherosclerotic heart disease of native coronary artery without angina pectoris; I10 Essential (primary) hypertension; Z87.891 Personal history of nicotine dependence; Z79.82 Long term (current) use of aspirin; Z79.899 Other long term (current) drug therapy; Z79.01 Long term (current) use of anticoagulants
CPT/HCPCS: 99283

== ENCOUNTER 2024-05-24 08:21 | Outpatient (CLI) | payer MEDICARE ==
[2024-05-24] MEDS ORDERED: Barium Sulfate 96% 176 GM BOT (xray ONLY) ONE (08:27)
[2024-05-24] MEDS ORDERED: E-Z-HD 98% W/W 340GM BOT (x-ray ONLY) ONE (08:27)
== END 2024-05-24 08:22 | disposition home or self-care (01) ==
LOC: RAD 08:21
PROVIDERS: ATTEND Specialist
DX: R13.10 Dysphagia, unspecified (principal); K31.89 Other diseases of stomach and duodenum
CPT/HCPCS: 74220

== ENCOUNTER 2024-06-11 13:48 | Inpatient (IN) | payer MEDICARE ==
[~2024-06-11 13:48] MED LIST: Iopamidol-370 76% 500 ML MDV (1 ML CHARGE) ONE
[2024-06-11 14:44] LABS: #Basophils 0.03 10x3/uL (0.0-0.2); %Basophils 0.5 % (0.0-1.0); %Lymphocytes 28.7 % (21.0-51.0); %Monocytes 9.6 % (0.0-10.0); Hematocrit 31.7 % (42.0-52.0); Hemoglobin 10.3 g/dL (14.0-18.0); Mean Corpuscular HGB CONC 32.5 g/dL (32.0-36.0); Mean Corpuscular Hemoglobin 21.8 pg (27.0-31.0); Mean Platelet Volume 8.8 fL (7.4-10.4); Platelet Count 224 10x3/uL (130-400); RBC Distribution Width 16.2 % (11.5-14.5); Red Blood Cell (RBC) Count 4.73 mill/uL (4.70-6.10)
[2024-06-11 14:57] LABS: INR-International Normal Ratio 1.2; Prothrombin Time 14.7 sec (12.0-14.7)
[2024-06-11 14:58] LABS: PTT 31.6 sec (22.9-36.1)
[2024-06-11 15:06] LABS: ALT (SGPT) 24 U/L (8-55); AST (SGOT) 29 U/L (5-34); Albumin 3.7 g/dL (3.4-4.8); Alkaline Phosphatase 74 U/L (40-110); Anion Gap 12 mmol/L (10-20); BUN (Urea Nitrogen) 20 mg/dL (8.4-25.7); Bilirubin, Total 0.7 mg/dL (0.2-1.2); Calc. Creatinine Clearance 0 mL/min (70-130); Calcium 8.8 mg/dL (7.8-10.44); Carbon Dioxide 28 mmol/L (23-31); Chloride 104 mmol/L (98-107); Estimated GFR 90; Globulin 2.8 g/dL (2.4-3.5); Glucose 104 mg/dL (83-110); Lipase 18 U/L (8-78); Magnesium 2.2 mg/dL (1.6-2.6); Potassium 4.1 mmol/L (3.5-5.1); Protein, Total 6.5 g/dL (5.8-8.1); Sodium 140 mmol/L (136-145)
[2024-06-11] MEDS ORDERED: Mag-Al 1200 mg/1200 mg/30 ML UDCUP ONE (15:21)
[2024-06-11] MEDS ORDERED: Famotidine 20 MG TAB ONE (15:21)
[2024-06-11] MEDS ORDERED: Morphine 2 MG/ML VIAL ONE ×2 (15:24→21:49)
[2024-06-11] MEDS ORDERED: Famotidine/PF 20 mg/2ml Vial ONE (15:25)
[2024-06-11] MEDS ORDERED: Lidocaine Viscous Sol 2% 15 ml UD Cup ONE (15:25)
[2024-06-11 15:27] LABS: Elliptocytes SLIGHT = 2-5 cells HPF (0-1); Microcytosis MARKED = >30 cells HPF (0-5); Ovalocytes SLIGHT = 2-5 cells HPF (0-1); Platelet Adequacy Comment Platelets Normal; Polychromasia MODERATE = 3-4 cells HPF (0-2); Schistocytes SLIGHT = 2-5 cells HPF (0-1); Tear Drops SLIGHT = 2-5 cells HPF (0-1)
[2024-06-11] MEDS ORDERED: diphenhydrAMINE 50 MG/ML VIAL ONE (15:32)
[2024-06-11] MEDS ORDERED: methylPREDNISolone Sod Succ 40 MG VIAL ONE (15:32)
[2024-06-11] MEDS ORDERED: Sucralfate 1 GM/10 ML UDCUP ONE (17:22)
[2024-06-11 17:53] LABS: Troponin I 0.025 ng/mL (< 0.028)
[2024-06-11] MEDS ORDERED: Acetaminophen 325 MG TAB PO PRN (21:31)
[2024-06-11] MEDS ORDERED: Ondansetron PF 4 MG/2 ML Vial IVP PRN (21:31)
[2024-06-11] MEDS ORDERED: Calcium Carbonate 500 MG ChewTAB PO PRN (21:35)
[2024-06-11] MEDS ORDERED: traMADol HCl 50 MG TAB PO PRN (21:36)
[2024-06-11 23:03] VITALS: BMI 34.1
[2024-06-11] MEDS: Sodium Chloride 0.9% 1,000 ML IV SCH (23:24)
[2024-06-12 02:13] LABS: Troponin I Less than 0.010 ng/mL (< 0.028)
[2024-06-12 05:52] LABS: #Basophils Less than 0.03 10x3/uL (0.0-0.2); #Eosinophils Less than 0.03 10x3/uL (0.0-0.7); %Basophils 0.2 % (0.0-1.0); %Lymphocytes 12.7 % (21.0-51.0); %Monocytes 1.9 % (0.0-10.0); %Neutrophils 84.4 % (42.0-75.0); Hematocrit 32.1 % (42.0-52.0); Hemoglobin 10.3 g/dL (14.0-18.0); Mean Corpuscular HGB CONC 32.1 g/dL (32.0-36.0); Mean Corpuscular Volume 68.6 fL (78.0-98.0); Mean Platelet Volume 9.7 fL (7.4-10.4); Platelet Count 229 10x3/uL (130-400); RBC Distribution Width 16.9 % (11.5-14.5); Red Blood Cell (RBC) Count 4.68 mill/uL (4.70-6.10)
[2024-06-12 06:04] LABS: Anion Gap 13 mmol/L (10-20); BUN (Urea Nitrogen) 19 mg/dL (8.4-25.7); Calc. Creatinine Clearance 118 mL/min (70-130); Calcium 8.7 mg/dL (7.8-10.44); Carbon Dioxide 21 mmol/L (23-31); Chloride 106 mmol/L (98-107); Estimated GFR 93; Glucose 121 mg/dL (83-110); Potassium 4.7 mmol/L (3.5-5.1); Sodium 135 mmol/L (136-145)
[2024-06-12 08:00] VITALS: BP 147/72; TEMP 98.2
[2024-06-12] MEDS: Morphine 2 MG/ML VIAL SLOW IVP PRN (08:59)
[2024-06-12] MEDS: Pantoprazole 40 MG VIAL IVP SCH (13:08)
== END 2024-06-12 13:24 | disposition home or self-care (01) | DRG 392 ==
LOC: ERS 13:48 → T4-B 21:30 → OBSVTOIN 06-12 11:06
PROVIDERS: ADMIT Internal Medicine; ATTEND Internal Medicine
DX: R10.13 Epigastric pain (principal); I25.10 Atherosclerotic heart disease of native coronary artery without angina pectoris; K21.9 Gastro-esophageal reflux disease without esophagitis; E78.5 Hyperlipidemia, unspecified; F32.A Depression, unspecified; F41.9 Anxiety disorder, unspecified; I10 Essential (primary) hypertension; M19.90 Unspecified osteoarthritis, unspecified site; Z88.8 Allergy status to other drugs, medicaments and biological substances; Z91.041 Radiographic dye allergy status; Z91.048 Other nonmedicinal substance allergy status; Z79.82 Long term (current) use of aspirin; Z79.02 Long term (current) use of antithrombotics/antiplatelets; Z90.49 Acquired absence of other specified parts of digestive tract; Z79.899 Other long term (current) drug therapy; Z79.891 Long term (current) use of opiate analgesic; Z95.1 Presence of aortocoronary bypass graft; Z87.891 Personal history of nicotine dependence
CPT/HCPCS: 36415; 71045; 71260; 80048; 80053; 83690; 83735; 83880; 84484; 85025; 85610; 85730; 93005; 96374; 96375; 96376; G0378; J1200; J2272; J2470; J2919; J3490; J7030; Q9967

== ENCOUNTER 2024-07-19 07:19 | Outpatient (CLI) | payer MEDICARE | END 2024-07-19 07:20 | disposition home or self-care (01) | LOC: NM 07:19 | PROVIDERS: ATTEND Internal Medicine Gastroenterology | DX: R10.13 Epigastric pain (principal); R11.0 Nausea; K31.84 Gastroparesis | CPT/HCPCS: 78264; A9541 ==